=== PATIENT | male | born 1995 | race Caucasian/White ===

== ENCOUNTER 2017-09-14 18:16 | Emergency (ER) | payer OTHER ==
[~2017-09-14] VITALS: Ht 177.8 cm; Wt 78.7 kg
[2017-09-14 18:44] LABS: BASOPHILS # (AUTO) 0.1 X10'3 (0-0.2); BASOPHILS % (AUTO) 0.4 % (0-1); EOSINOPHILS # (AUTO) 0.1 X10'3 (0-0.9); HEMATOCRIT 47.3 % (42.0-52.0); HEMOGLOBIN 16.2 g/dl (14.0-17.9); LYMPHOCYTES # (AUTO) 1.9 X10'3 (1.1-4.8); LYMPHOCYTES % (AUTO) 13.3 % (21-51); MEAN CORPUSCULAR HEMOGLOBIN 31.2 PG (27.0-31.0); MEAN CORPUSCULAR HGB CONC 34.3 % (33.0-36.5); MEAN PLATELET VOLUME 8.4 FL (7.4-10.4); MONOCYTES # (AUTO) 1.3 X10'3 (0-0.9); MONOCYTES % (AUTO) 8.9 % (2-12); NEUTROPHILS # (AUTO) 10.9 X10'3 (1.8-7.7); NEUTROPHILS % (AUTO) 76.4 % (42-75); PLATELET COUNT 236 X10'3 (140-440); RED CELL DISTRIBUTION WIDTH 12.4 % (11.5-14.5); WHITE BLOOD COUNT 14.2 X10'3 (4.5-11.0)
[2017-09-14 18:57] LABS: ALANINE AMINOTRANSFERASE 22 U/L (12-78); ALBUMIN 4.5 G/DL (3.4-5.0); ALBUMIN/GLOBULIN RATIO 1.1 (1.1-1.5); ALKALINE PHOSPHATASE 92 IU/L (46-116); ANION GAP 9 (8-16); ASPARTATE AMINO TRANSFERASE 18 U/L (10-37); BILIRUBIN,TOTAL 0.8 MG/DL (0.1-1.0); BLOOD UREA NITROGEN 10 MG/DL (7-18); BUN/CREATININE RATIO 8.5 (5.4-32.0); CALCIUM 9.6 MG/DL (8.5-10.1); CHLORIDE 100 MMOL/L (99-107); CREATININE 1.17 MG/DL (0.60-1.10); GLUCOSE 94 MG/DL (70-104); POTASSIUM 3.8 MMOL/L (3.5-5.1); SODIUM 139 MMOL/L (135-145); TOTAL CARBON DIOXIDE 29.9 MMOL/L (24-32); TOTAL PROTEIN 8.6 G/DL (6.4-8.2); eGFR 79 ML/MIN
[2017-09-14] MEDS ORDERED: glycopyrrolate 0.2mg/ml inj ONE (19:53)
[2017-09-14] MEDS ORDERED: neostigmine methylsulfate 1 MG/ML 10ml vial ONE (19:53)
[2017-09-14] MEDS ORDERED: sevoflurane 250ml liquid IH ONE (19:53)
[2017-09-14] MEDS ORDERED: fentaNYL/PF 50MCG/1 ML 2ML syringe ONE (20:05)
[2017-09-14] MEDS ORDERED: LIDOcaine 2% (20mg/ml) 5ml vial ONE (20:06)
[2017-09-14] MEDS ORDERED: midazolam 2 mg/2 ml injection ONE (20:06)
[2017-09-14] MEDS ORDERED: propofol inj 20 ML IV ONE (20:06)
[2017-09-14] MEDS ORDERED: BUPIVAcaine/PF 2.5mg/ml (0.25%) 10ml vial ONE (20:07)
[2017-09-14] MEDS ORDERED: dexamethasone sod phosphate 4mg/ml inj. ONE (20:08)
[2017-09-14] MEDS ORDERED: ondansetron/PF 4mg/2ml inj ONE (20:08)
[2017-09-14] MEDS ORDERED: ketorolac trometh. 30mg/ml inj. ONE (20:08)
[2017-09-14] MEDS ORDERED: ringers solution, lacted 1,000 ML IV SCH (20:24)
[2017-09-14] MEDS ORDERED: morphine 4 MG/ML inj SYRINge IV PRN ×2 (20:25)
[2017-09-14] MEDS ORDERED: ondansetron/PF 4mg/2ml inj IV PRN (20:25)
[2017-09-14] MEDS ORDERED: meperidine/PF 25mg/ml syringe IV PRN ×3 (20:25)
[2017-09-14] MEDS ORDERED: proCHLORperazine 10 MG/2 ml inj IV PRN (20:25)
[2017-09-14] MEDS ORDERED: ceFOXitin 1000 MG inj ONE ×2 (20:48)
[2017-09-14 20:56] VITALS: BP 129/71
[2017-09-14 21:06] VITALS: BP 127/68
[2017-09-14 21:16] VITALS: BP 129/67
[2017-09-14 21:26] VITALS: BP 124/54
[2017-09-14 21:36] VITALS: BP 117/67
[2017-09-14 21:46] VITALS: BP 128/74
== END 2017-09-14 21:56 | disposition home or self-care (01) ==
LOC: ER 18:17
DX: K35.80 Unspecified acute appendicitis (principal)
CPT/HCPCS: 36415; 80053; 85025; 99284; J0694; J1100; J1885; J2001; J2250; J2405; J2704; J2710; J3010; J3490; J7030; J7120; A7000